=== PATIENT | female | born 1970 | race Caucasian/White ===

== ENCOUNTER 2016-05-23 14:33 | Emergency (ER) | payer OTHER, SELFPAY ==
[2016-05-23] MEDS ORDERED: Acetaminophen 500 MG TAB ONE (14:59)
--- NOTE | 2016-05-23 20:18 | RAD ---
CHEST TWO VIEWS: Date: 05-23-16 FINDINGS: No major infiltrate was seen. The only area in question was perhaps some minimal left basilar strea rachel but the finding is equivocal enough that I have no confidence in diagnosing an early pneumonia here. The apices are clear. The trachea is midline. The bony structures showed no acute findings. IMPRESSION: Probably negative study. POS: HOME
== END 2016-05-23 15:22 | disposition home or self-care (01) ==
LOC: BURERS 14:33
DX: J11.1 Influenza due to unidentified influenza virus with other respiratory manifestations (principal); E03.9 Hypothyroidism, unspecified; I10 Essential (primary) hypertension; F32.9 Major depressive disorder, single episode, unspecified; Z79.899 Other long term (current) drug therapy
CPT/HCPCS: 71020

== ENCOUNTER 2016-08-03 16:43 | Emergency (ER) | payer SELFPAY ==
[2016-08-03] MEDS ORDERED: Ibuprofen 800 MG TAB ONE (17:11)
[2016-08-03] MEDS ORDERED: HYDROcodone/Acetaminophen 10/325 mg Tablet ONE (17:11)
--- NOTE | 2016-08-03 21:02 | RAD ---
RIGHT SHOULDER THREE VIEWS 08/03/16 No fracture, dislocation, or AC joint widening was seen. The adjacent ribs appear normal. Very minim al irregularity along the superior aspect of the humeral head does not appear acute. IMPRESSION: No acute findings. POS: HOME
--- NOTE | 2016-08-03 21:05 | RAD ---
CHEST TWO VIEWS 08/03/16 Comparison is made with a 05/23/16 study. There has been no adverse interval change. The heart is norm al in size and the lungs are clear. No infiltrate or effusion was seen. The trachea is midline. The bony structures are unremarkable in appearance. IMPRESSION: No acute findings. POS: HOME
--- NOTE | 2016-08-03 21:15 | RAD ---
CERVICAL SPINE 08/03/16 AP, lateral, open mouth and swimmer's views are provided. There is loss of the normal cervical lordo sis. The C1 to dens distance is normal and the soft tissues are normal in thickness. The disc spaces are normal in height. IMPRESSION: Loss of lordosis which could be due to spasm. Otherwise, no acute traumatic finding. Incidentally no patricia were impacted wisdom teeth in the mandible. POS: HOME
== END 2016-08-03 17:45 | disposition home or self-care (01) ==
LOC: BURERS 16:43
DX: S16.1XXA Strain of muscle, fascia and tendon at neck level, initial encounter (principal); S40.011A Contusion of right shoulder, initial encounter; S20.222A Contusion of left back wall of thorax, initial encounter; I10 Essential (primary) hypertension; E03.9 Hypothyroidism, unspecified; F32.9 Major depressive disorder, single episode, unspecified; V29.9XXA Motorcycle rider (driver) (passenger) injured in unspecified traffic accident, initial encounter; Y93.55 Activity, bike riding
CPT/HCPCS: 71020; 72040

== ENCOUNTER 2021-03-23 00:58 | Emergency (ER) | payer SELFPAY ==
[2021-03-23] MEDS ORDERED: Albuterol 200 PUFF (6.7GM INHALER) ONE (01:33)
[2021-03-23] MEDS ORDERED: Dexamethasone 10 MG/ML VIAL ONE (01:34)
[2021-03-23 17:59] LABS: SARS-CoV-2 PCR by NAA DETECTED (NotDetected)
== END 2021-03-23 01:48 | disposition home or self-care (01) ==
LOC: BURERS 00:58
DX: U07.1 COVID-19 (principal); J20.9 Acute bronchitis, unspecified; I10 Essential (primary) hypertension; E03.9 Hypothyroidism, unspecified; Z77.22 Contact with and (suspected) exposure to environmental tobacco smoke (acute) (chronic); Z79.899 Other long term (current) drug therapy
CPT/HCPCS: 71045; 87804; J1100; U0003; U0005